=== PATIENT | male | born 1990 | race Caucasian/White ===

== ENCOUNTER 2016-09-10 08:43 | Emergency (ER) | payer OTHER ==
[~2016-09-10] VITALS: Ht 180.3 cm; Wt 83.9 kg
[~2016-09-10 08:43] MED LIST: PROZAC20 MG PO; ZOFRAN ODT4 MG PO
[2016-09-10 08:52] VITALS: BP 155/82
[2016-09-10] MEDS ORDERED: NORCO 5-325 TA1 EACH PO (09:08)
[2016-09-10] MEDS ORDERED: IBUPROFEN 600600 M1 PO (09:08)
== END 2016-09-10 09:14 | disposition home or self-care (01) ==
LOC: ER 08:43
DX: S69.91XA Unspecified injury of right wrist, hand and finger(s), initial encounter (principal); F32.9 Major depressive disorder, single episode, unspecified; W18.30XA Fall on same level, unspecified, initial encounter; Y93.89 Activity, other specified; Y92.89 Other specified places as the place of occurrence of the external cause; Y99.8 Other external cause status

== ENCOUNTER 2018-11-07 12:58 | Emergency (ER) | payer OTHER ==
[~2018-11-07] VITALS: Ht 180.3 cm; Wt 86.2 kg
[~2018-11-07 12:58] MED LIST changes: +IBUPROFEN 600600 M1 PO; +NORCO 5-325 TA1 EACH PO
[2018-11-07 13:29] LABS: URINE BILIRUBIN NEGATIVE (Negative); URINE BLOOD NEGATIVE (Negative); URINE CLARITY CLEAR; URINE COLOR YELLOW; URINE GLUCOSE-RANDOM* 3+ (Negative); URINE KETONES NEGATIVE (Negative); URINE LEUKOCYTES NEGATIVE (Negative); URINE NITRITE NEGATIVE (Negative); URINE PROTEIN (DIPSTICK) NEGATIVE (Negative); URINE UROBILINOGEN 0.2 E.U./dl (0.2-1.0)
[2018-11-07 14:33] LABS: ABSOLUTE NEUTROPHILS 5.3 thou/uL (1.4-8.2); BASOPHILS 0.5 % (0.0-2.0); HEMATOCRIT 42.2 % (42.0-52.0); HEMOGLOBIN 14.9 gm/dL (14.0-18.0); LYMPHOCYTES 31.3 % (24.0-44.0); MCH 30.5 pg (26.0-34.0); MCHC 35.2 g/dL (28.0-37.0); MCV 86.4 fL (80.0-100.0); POLYS 57.2 % (36.0-66.0); RBC 4.88 mil/uL (4.50-6.00); WBC 11.1 thou/uL (4.0-11.0)
[2018-11-07 14:54] LABS: PLATELET COUNT 263 thou/uL (150-400)
[2018-11-07] MEDS ORDERED: LEXAPRO 10 MG T10 M2 PO (15:15)
[2018-11-07 15:25] LABS: ALBUMIN 3.9 g/dL (3.4-5.0); CALCIUM 9.1 mg/dL (8.5-10.1); CREATININE 0.9 mg/dL (0.7-1.3); POTASSIUM 3.6 mmol/L (3.5-5.1); TOTAL BILIRUBIN 0.2 mg/dL (<0.1-1.0); TOTAL PROTEIN 7.4 g/dL (6.4-8.2)
[2018-11-07] MEDS ORDERED: ULTRAM 50MG TAB50 MG PO (15:56)
[2018-11-07] MEDS ORDERED: BENTYL 20 MG TA20 M1 PO (15:56)
[2018-11-07] MEDS ORDERED: ZOFRAN4 MG PO (15:57)
[2018-11-07 17:28] VITALS: BP 122/69
== END 2018-11-07 17:28 | disposition home or self-care (01) ==
LOC: ER 12:58
PROVIDERS: Emergency Medicine
DX: R10.11 Right upper quadrant pain (principal); R10.31 Right lower quadrant pain; R19.7 Diarrhea, unspecified; Z79.899 Other long term (current) drug therapy